=== PATIENT | female | born 1955 ===

== ENCOUNTER 2019-04-04 10:59 | Day surgery (SDC) | payer MEDICAID ==
[2019-04-04] MEDS ORDERED: MIDAZOLAM HCL 2MG/2ML VIAL IV ONE (11:00)
[2019-04-04] MEDS ORDERED: LIDOCAINE 2% MDV (20MG/ML) 20ML VIAL IV ONE (11:00)
[2019-04-04] MEDS ORDERED: PROPOFOL 10 MG/ML VIAL IV ONE (11:00)
--- NOTE | 2019-04-05 15:41 | Operative Note ---
OPERATION: COLONOSCOPY with random biopsies. PREOPERATIVE DIAGNOSIS: Suspected chronic diarrhea. POSTOPERATIVE DIAGNOSIS: Normal exam, rule out occult microscopic colitis. PROCEDURE: After informed consent was obtained from the patient, she was placed in the left lateral decubitus position in the endoscopy suite, sedated and monitored by the department of anesthesia. Digital rectal exam was unremarkable. A well-lubricated ETO832 colonoscope was inserted into the rectum and advanced to the cecum. Preparation quality was good. The cecum, cecal bulb, ileocecal valve, distal portion of the terminal ileum, ascending colon, transverse colon, descending colon, sigmoid colon, and rectum were free of inflammatory changes, mass lesions, or polyps. Random biopsies were obtained throughout the right, transverse, and left colon. Forward and J-turn views of the rectum and anorectum were unremarkable. The endoscope was straightened, the rectal ampulla deflated, and the endoscope was removed. RECOMMENDATIONS: We will await the results of tissue histology. At this point, she should undergo repeat exam in 10 years or sooner should symptoms warrant. As always, thank you for allowing me to participate in the healthcare of your patients. MARYANN
== END 2019-04-04 12:25 | disposition home or self-care (01) ==
LOC: HOP 10:59
PROVIDERS: ATTEND Internal Medicine Gastroenterology
DX: Z12.11 Encounter for screening for malignant neoplasm of colon (principal); K62.89 Other specified diseases of anus and rectum; K52.9 Noninfective gastroenteritis and colitis, unspecified; I10 Essential (primary) hypertension; E78.00 Pure hypercholesterolemia, unspecified